=== PATIENT | female | born 1975 | race Two or more races ===

== ENCOUNTER 2019-08-11 18:48 | Inpatient (IN) | payer MEDICAID ==
[~2019-08-11] VITALS: Ht 165.1 cm; Wt 64.4 kg
[2019-08-11] MEDS ORDERED: SERT50TA12 PO (19:15)
[2019-08-11] MEDS ORDERED: GABA-529 PO (19:15)
[2019-08-11 19:44] LABS: BASOPHILS % (AUTO) 0.7 % (0.0-2.0); EOSINOPHILS % (AUTO) 1.4 % (1.0-6.0); HEMATOCRIT 39.6 % (36-46); HEMOGLOBIN 13.3 g/dL (12.0-16.0); LYMPHOCYTES # (AUTO) 1.3 K/uL (1.0-4.8); LYMPHOCYTES % (AUTO) 29.7 % (22.0-44.0); MEAN CORPUSCULAR HEMOGLOBIN 31.8 pg (26.0-34.0); MEAN CORPUSCULAR HGB CONC 33.7 G/dL (31.0-37.0); MEAN CORPUSCULAR VOLUME 94 fL (80-100); MONOCYTES # (AUTO) 0.5 K/uL (0.1-1.0); MONOCYTES % (AUTO) 10.9 % (2.0-9.0); NEUTROPHILS # (AUTO) 2.5 K/uL (1.8-7.7); NEUTROPHILS % (AUTO) 57.3 % (40.0-70.0); PLATELET COUNT (AUTO) 305 K/uL (150-450); RED BLOOD CELL COUNT(AUTO) 4.19 MIL/uL (4.00-5.20)
[2019-08-11 20:18] LABS: ANION GAP 7 mmol/L (8-16); CALCIUM, TOTAL 8.6 mg/dL (8.8-10.5); CARBON DIOXIDE 29 mmol/L (22-29); CHLORIDE 103 mmol/L (98-107); CREATININE 0.69 mg/dL (0.60-1.30); GLOMERULAR FILTR. RATE CALC > 60 mL/min (>60); GLUCOSE,RANDOM 120 mg/dL (70-110); POTASSIUM 3.1 mmol/L (3.5-5.1); SODIUM SERUM 139 mmol/L (136-145); UREA NITROGEN, BLOOD 9 mg/dL (7-18)
[2019-08-11 20:25] LABS: ALANINE AMINOTRANSFERASE 16 U/L (12-78); ALKALINE PHOSPHATASE 85 U/L (46-116); ASPARTATE AMINOTRANSFERASE 15 U/L (15-37); BILIRUBIN,TOTAL 0.2 mg/dL (0.1-1.0); TOTAL PROTEIN, SERUM 8.1 g/dL (6.4-8.2)
[2019-08-11] MEDS ORDERED: POTASSIUM CHLORIDE 20 MEQ ER TABLET PO ONE (21:00)
[2019-08-11] MEDS ORDERED: IBUPROFEN 600 MG TABLET PO ONE (21:15)
[2019-08-11 21:41] LABS: AMPHET/METH SCREEN,URINE NEGATIVE (NEGATIVE); BARBITURATE SCREEN, URINE NEGATIVE (NEGATIVE); BENZODIAZEPINES SCREEN,URINE NEGATIVE (NEGATIVE); CANNABINOID SCREEN,URINE NEGATIVE (NEGATIVE); COCAINE SCREEN,URINE NEGATIVE (NEGATIVE); METHADONE SCREEN, URINE NEGATIVE (NEGATIVE); OPIATE SCREEN,URINE NEGATIVE (NEGATIVE)
[2019-08-11 21:42] LABS: PHENCYCLIDINE SCREEN,URINE NEGATIVE (NEGATIVE)
[2019-08-11] MEDS ORDERED: LORazepam 2 MG TABLET PO PRN (22:45)
[2019-08-11] MEDS ORDERED: HALOPERIDOL 5 MG TABLET PO PRN (22:45)
[2019-08-11] MEDS ORDERED: ZOLPIDEM TARTRATE 10 MG TABLET PO PRN (22:45)
[2019-08-12 02:47] VITALS: BP 118/70
[2019-08-12 08:14] LABS: CHOL/HDL RATIO 3.6 (3.9-5.7)
[2019-08-12 08:30] VITALS: BP 140/87
[2019-08-12] MEDS ORDERED: IBUPROFEN 600 MG TABLET PO PRN (08:45)
[2019-08-12] MEDS ORDERED: BENZOCAINE/MENTHOL LOZENGE MM PRN (08:45)
[2019-08-12] MEDS ORDERED: ONDANSETRON HCL 4 MG TABLET PO PRN (08:45)
[2019-08-12] MEDS ORDERED: BACITRACIN 28.4 GM OINTMENT TP PRN (08:45)
[2019-08-12] MEDS ORDERED: LOPERAMIDE HCL 2 MG CAPSULE PO PRN (08:45)
[2019-08-12] MEDS ORDERED: POTASSIUM CHLORIDE 20 MEQ ER TABLET PO ONE (08:45)
[2019-08-12] MEDS ORDERED: ACETAMINOPHEN 325 MG TABLET PO PRN (08:45)
[2019-08-12] MEDS ORDERED: ALBUTEROL SULFATE HFA 90 MCG/PUFF 8 GM INHALER IH PRN (08:45)
[2019-08-12] MEDS ORDERED: MAGNESIUM HYDROXIDE SUSPENSION 30 ML UDCUP PO PRN (08:45)
[2019-08-12] MEDS ORDERED: CloNIDine HCL 0.1 MG TABLET PO PRN (08:45)
[2019-08-12] MEDS ORDERED: OMEPRAZOLE 20 MG CAPSULE PO PRN (08:45)
[2019-08-12] MEDS ORDERED: MAG HYDROX/AL HYDROX/SIMETH ES 30 ML SUSPENSION UDCUP PO PRN (08:45)
[2019-08-12] MEDS ORDERED: DOCUSATE SODIUM 100 MG CAPSULE PO PRN (08:45)
[2019-08-12] MEDS ORDERED: PETROLATUM,WHITE 28 GM JELLY TP PRN (08:45)
[2019-08-12] MEDS: SERTRALINE HCL 50 MG TABLET PO SCH ×2 (11:30→12:30)
[2019-08-12 16:43] VITALS: BP 139/78
[2019-08-12] MEDS: RisperiDONE 1 MG TABLET PO SCH (20:36)
[2019-08-13 00:25] VITALS: BP 138/82
[2019-08-13 07:42] LABS: HEMOGLOBIN A1C 5.1 % (4.5-6.2)
[2019-08-13 07:53] LABS: CHOL/HDL RATIO 3.9 (3.9-5.7); POTASSIUM 4.2 mmol/L (3.5-5.1); THYROID STIMULATING HORMONE 3.67 uIU/mL (0.36-3.74)
[2019-08-13 08:16] VITALS: BP 117/79
[2019-08-13] MEDS: SERTRALINE HCL 50 MG TABLET PO SCH (08:41)
[2019-08-13 16:12] VITALS: BP 123/80
[2019-08-13] MEDS: RisperiDONE 1 MG TABLET PO SCH (20:23)
[2019-08-14 07:15] VITALS: BP 120/81
[2019-08-14 08:09] VITALS: BP 113/66
[2019-08-14] MEDS: SERTRALINE HCL 50 MG TABLET PO SCH (09:00)
[2019-08-14 16:08] VITALS: BP 131/69
[2019-08-14] MEDS: RisperiDONE 1 MG TABLET PO SCH (20:10)
[2019-08-15 05:46] VITALS: BP 119/63
[2019-08-15 08:35] VITALS: BP 122/80
[2019-08-15] MEDS: SERTRALINE HCL 50 MG TABLET PO SCH (08:50)
[2019-08-15] MEDS: BuPROPion HCL XL 150 MG ER TABLET PO SCH (14:28)
[2019-08-15 16:06] VITALS: BP 111/61
[2019-08-15] MEDS: RisperiDONE 1 MG TABLET PO SCH (20:10)
[2019-08-16 00:26] VITALS: BP 116/69
[2019-08-16 08:35] VITALS: BP 130/88
[2019-08-16] MEDS: BuPROPion HCL XL 150 MG ER TABLET PO SCH (09:09)
[2019-08-16 16:23] VITALS: BP 129/74
[2019-08-16] MEDS ORDERED: BUPR-93 PO (17:47)
[2019-08-16] MEDS ORDERED: RISP1TAB89 PO (17:52)
== END 2019-08-16 17:00 | disposition home or self-care (01) | DRG 750 ==
LOC: EMS 18:52 → B2S 22:23
PROVIDERS: ADMIT Psychiatry & Neurology Psychiatry; ATTEND Psychiatry & Neurology Psychiatry
DX: F25.1 Schizoaffective disorder, depressive type (principal); R45.851 Suicidal ideations; Z59.0 Homelessness; E87.6 Hypokalemia; G47.00 Insomnia, unspecified; F41.9 Anxiety disorder, unspecified; G89.29 Other chronic pain; M25.511 Pain in right shoulder
CPT/HCPCS: 83036; 84132; 84443; G0480